=== PATIENT | male | born 1950 | race Caucasian/White ===

== ENCOUNTER 2017-08-09 06:55 | Inpatient (IN) ==
[2017-08-08 14:00] LABS: PT Patient Result 10.2 SECS; Partial Thromboplastin Time 26.4 SECS (0-40)
[~2017-08-09 06:55] MED LIST: ceFAZolin 1,000 MG in SYRINGE 1 EACH IV ONE
[2017-08-09] MEDS ORDERED: DIAZEPAM 5 MG TABLET PO ONE (07:24)
[2017-08-09] MEDS ORDERED: FAMOTIDINE 20 MG TABLET PO ONE (07:24)
[2017-08-09] MEDS ORDERED: PHENYLEPHRINE DRIP 20 MG/250 ML PREMIX IV ONE ×2 (07:33→11:34)
[2017-08-09] MEDS ORDERED: HEPARIN/NACL 0.9% 2 UNITS/ML 500 ML IV ONE ×2 (07:33→11:34)
[2017-08-09] MEDS ORDERED: NITROGLYCERIN DRIP 50 MG/250 ML BOTTLE IV ONE ×2 (07:33→11:35)
[2017-08-09] MEDS ORDERED: FAMOTIDINE 20 MG TABLET ONE (07:43)
[2017-08-09] MEDS ORDERED: DIAZEPAM 5 MG TABLET ONE (07:43)
[2017-08-09] MEDS ORDERED: ceFAZolin 1,000 MG VIAL ONE (07:43)
[2017-08-09] MEDS ORDERED: HEPARIN 5,000 UNIT/1 ML VIAL ONE (07:55)
[2017-08-09] MEDS: LACTATED RINGERS 1,000 ML IV SCH ×2 (07:56→14:50)
[2017-08-09] MEDS ORDERED: NALOXONE 0.4 MG/ML VIAL IV PRN (11:07)
[2017-08-09] MEDS ORDERED: DEXTROSE 50% 25 GM/50 ML VIAL IV PRN (11:07)
[2017-08-09] MEDS ORDERED: HYDROmorphone 2 MG/1 ML VIAL IV PRN ×2 (11:07)
[2017-08-09] MEDS ORDERED: oxyCODONE/ACETAMINOPHEN 5-325 MG TABLET PO PRN ×2 (11:07)
[2017-08-09] MEDS ORDERED: GLUCAGON 1 MG VIAL IM PRN (11:07)
[2017-08-09] MEDS ORDERED: ONDANSETRON 4 MG/2 ML VIAL IV PRN (11:07)
[2017-08-09] MEDS ORDERED: PROMETHAZINE 25 MG/1 ML VIAL IM PRN (11:07)
[2017-08-09] MEDS ORDERED: NITROPRUSSIDE 50 MG/2 ML VIAL ONE (11:22)
[2017-08-09] MEDS ORDERED: PHENYLEPHRINE DRIP 40 MG/250 ML PREMIX IV SCH (11:30)
[2017-08-09] MEDS ORDERED: NITROPRUSSIDE 100 MG in DEXTROSE 5% 250 ML IV SCH (11:30)
[2017-08-09] MEDS ORDERED: SEVOFLURANE 1 UNIT/15 MINUTE INH ONE (11:34)
[2017-08-09] MEDS ORDERED: HEPARIN 10,000 UNIT/10 ML VIAL ONE (11:34)
[2017-08-09] MEDS ORDERED: PROPOFOL 200 MG/20 ML VIAL IV ONE (11:34)
[2017-08-09] MEDS ORDERED: PHENYLEPHRINE 1 MG/10 ML SYRINGE IV ONE (11:35)
[2017-08-09] MEDS ORDERED: GLYCOPYRROLATE 0.4 MG/2 ML VIAL ONE (11:35)
[2017-08-09] MEDS ORDERED: fentaNYL 100 MCG/2 ML VIAL ONE (11:35)
[2017-08-09] MEDS ORDERED: PROTAMINE SULFATE 50 MG/5 ML VIAL IV ONE (11:35)
[2017-08-09] MEDS ORDERED: ROCURONIUM 100 MG/10 ML VIAL IV ONE (11:35)
[2017-08-09] MEDS ORDERED: ONDANSETRON 4 MG/2 ML VIAL ONE (11:35)
[2017-08-09] MEDS ORDERED: SODIUM CHLORIDE 0.9% 1,000 ML IV ONE (11:35)
[2017-08-09] MEDS ORDERED: LACTATED RINGERS 1,000 ML IV ONE (11:35)
[2017-08-10] MEDS: LACTATED RINGERS 1,000 ML IV SCH ×3 (00:40→09:05)
[2017-08-10 05:39] LABS: Basophils % 0.3 % (0.0-0.8); Eosinophils # 0.2 10*3/uL (0.0-0.87); Eosinophils % 1.5 % (0.00-10.9); Hematocrit 35.8 VOL% (42.0-52.0); Hemoglobin 12.1 GM/DL (14.0-18.0); Immature Granulocytes % 0.3 %; Immature Granulocytes Absolute 0.04 #; Lymphocytes # 3.7 10*3/uL (1.4-4.0); Lymphocytes % 29.2 % (21.2-54.2); Mean Corpuscular HGB Conc 33.8 GM/DL (32-36); Mean Corpuscular Hemoglobin 35 PG (27-34); Mean Platelet Volume 10.9 FL (9.6-12.0); Monocytes # 1.5 10*3/uL (0.11-0.8); Monocytes % 11.7 % (1.7-12.7); Neutrophils # 7.2 10*3/uL (1.4-7.4); Platelet Count 238 T/CUMM (130-400); Red Blood Count 3.51 MC/CUMM (3.8-5.5); Red Cell Distribution Width 13.7 % (9.3-17.3); White Blood Count 12.7 T/CUMM (4-12)
[2017-08-10 06:14] LABS: Calcium 8.1 MG/DL (8.5-10.1); Osmolality,Calculated 278.5 MOS/KG (273-304); Potassium 4.2 MMOL/L (3.5-5.1)
[2017-08-10] MEDS ORDERED: CLOPIDOGREL 75 MG TABLET PO SCH ×2 (09:00)
[2017-08-10] MEDS ORDERED: ASPIRIN EC 81 MG TABLET PO SCH (09:00)
[2017-08-10] MEDS ORDERED: ROSUVASTATIN 10 MG TABLET PO SCH (09:00)
[2017-08-10 17:15] VITALS: BP 137/74
== END 2017-08-10 17:30 | disposition home or self-care (01) | DRG 39 ==
LOC: N.SDSINP 06:55 → SUPCPDRO 06:55 → N.ICU 12:02 → N.4E 08-10 12:37
PROVIDERS: ADMIT Surgery; ATTEND Surgery